=== PATIENT | male | born 1990 | race Caucasian/White ===

== ENCOUNTER 2017-12-06 05:12 | Emergency (ER) | payer SELFPAY ==
[~2017-12-06 05:12] MED LIST: AUG875 PO; NAPR-1043 PO
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
[2017-12-06] MEDS ORDERED: NAPR220C12 PO (05:17)
[2017-12-06 05:50] LABS: PLATELET COUNT, AUTOMATED 177 K/uL (150-450)
== END 2017-12-06 07:43 ==
LOC: ER 05:14
DX: F32.9 Major depressive disorder, single episode, unspecified (principal); R45.851 Suicidal ideations; F10.920 Alcohol use, unspecified with intoxication, uncomplicated
CPT/HCPCS: 36415; 80305; 80320; 80329; 81001; 82040; 82247; 82310; 82374; 82435; 82565; 82947; 83735; 84075; 84132; 84155; 84295; 84443; 84450; 84460; 84520; 85025; 99285

== ENCOUNTER 2017-12-06 07:24 | Inpatient (IN) | payer SELFPAY ==
[~2017-12-06] VITALS: Ht 190.5 cm; Wt 108.9 kg
[~2017-12-06 07:24] MED LIST changes: +NAPR220C12 PO
[2017-12-06] MEDS ORDERED: MAG HYD/AL HYD/SIMETH 30ML UDC PO PRN (07:55)
[2017-12-06 08:00] VITALS: BP 135/85
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
[2017-12-06] MEDS ORDERED: NICOTINE CARTRIDGE 1 EA PO PRN (12:20)
[2017-12-06] MEDS: NICOTINE INH SYSTEM 10 MG/INH INH PRN ×2 (14:08→21:19)
--- NOTE | 2017-12-06 15:52 | HISTORY AND PHYSICAL ---
DATE OF ADMISSION: December 06, 2017 Patient was seen at approximately 1030 hours in the a.m. of December 06, 2017 for note concerning this dictation. PRESENTING PROBLEM/CHIEF COMPLAINT Patient emergency detained, stating he was just trying to get a break. HISTORY OF PRESENT ILLNESS This is a previously unknown to the [facility] 27-year-old male who was brought in by police after being found mildly intoxicated on alcohol and potentially making suicidal threats outside of town. Patient reports that he has not been sleeping well. He has had a lot of family stressors. 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 Patient reports he unfortunately is losing this business and will be closing down. Patient reports his girlfriend and he had been fighting as well. He had been drinking. He believes his family in general is "messing with my personal life." Patient denies making any obvious suicidal threat, but says he may have mentioned vague suicidal stuff. Patient was initially somewhat resistant to care, but remained overall cooperative, was admitted without problems. Patient did have a blood alcohol level around 140 at the time of admission. Again patient cooperative. Patient allowing us to speak to his stepmother, who stated that she had been called by a niece who is a friend of his girlfriend. The girlfriend had called the niece, stating that patient was indeed suicidal and extremely depressed. Patient's stepmother then found a nuisance wildlife trapper on the street and notified him. A welfare check was done, [place] with girlfriend, Antonette. Patient's stepmother extremely worried and states that the patient feels his "world has been caving in on him." She also mentioned that he has a drinking problem, in that she believes the patient gets very dysphoric and angry when he drinks. So far we have been unable to contact the patient's girlfriend. Patient himself denying any other symptoms, other than anger and frustration over being on the unit, and the aforementioned family stressors. MENTAL HEALTH HISTORY Patient denies any previous visits to an inpatient psychiatric zarco. Patient has never had any outpatient mental health treatment. He denies a history of suicide attempt, and the patient states he has never been on a psychiatric meds. FAMILY PSYCHIATRIC HISTORY Significant for what the patient says is alcoholism in his father. He reports depression may be part of his father's makeup as well. He denies any suicides in the family. PAST MEDICAL HISTORY Patient himself has had some fractures with some residual pain and possible neuropathy. Patient reports taking Aleve for pain. No other medications. He does report an allergy to DIAL specific brand of soap. SOCIAL HISTORY Patient born in [place], [place], raised in [place] and [place]. Parents were at the time of his . They when he was about 9 years old. Patient has one sister, five and a half years younger, who he reports some contact with and who lives in [place]. Patient did graduate high school and he has a "technical degree," unknown what it is in. 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 Patient has never , has no service, no children, and has been in a one-year relationship with significant other right now. LEGAL HISTORY Patient reports legal history significant for DUI on two and possibly three occasions in the past, and patient may have some pending court charges. SUBSTANCE ABUSE HISTORY Patient admits to using alcohol at times, but is seemingly minimizing its negative effects. Denies any other substance use. PHYSICAL EXAMINATION GENERAL: Please see emergency room note. Notable for a frustrated 27-year-old male. VITAL SIGNS: At the time of admission, temperature 98.7, pulse 122, respiratory rate 14, blood pressure 97 on room air. LABORATORY DATA RBCs elevated at 6.04, hemoglobin 18.4 and elevated. Chemistry panel notable for a random glucose slightly elevated at 122. AST 46 and ALT 73, both slightly elevated. TSH 4.18. Urinalysis unremarkable. Toxicology screen negative. Serum alcohol level 141 at the time of admission. MENTAL STATUS EXAMINATION GENERAL APPEARANCE, BEHAVIOR AND ATTITUDE: This is an overall pleasant 27-year- old male, initially resistant to care and voicing his frustration of being on the unit and his mistrust of others. Patient, however, now interacting fairly well on the unit. We are still trying to gather collateral information. No bizarre mannerisms or tics. No periods of tearfulness. No psychomotor agitation or retardation. SPEECH: Within normal limits, regular rate, rhythm volume and tone. MOOD: Described as frustrated. AFFECT: Constricted. Mood congruent. THOUGHT PROCESSES: Goal directed. "I need to leave this place." No loose associations or flight of ideas. THOUGHT CONTENT: Free of auditory or visual hallucinations, ideas of reference , thought broadcastings, delusions, obsessions, compulsions. Patient stating he has no suicidal intent, but did allude to the fact he was making vague suicidal statements. Denying homicidal ideation. SENSORIUM: Clear. COGNITION: Alert and oriented to person, place, time and situation. MEMORY: Immediate, recent and remote estimated intact. INTELLIGENCE: Average based on interview. INSIGHT AND JUDGMENT: Considered limited at this time and in need of further evaluation. Acute alcohol intoxication likely limiting judgment. ASSESSMENT This is a 27-year-old male who has never been on the psychiatric zarco here before. Patient appears to be suffering from some degree of alcohol use disorder with what appears to be multiple DUIs and potentially a decompensation in mood when intoxicated. Patient suffering from multiple stressors that are identified at this time as well. We will gain collateral information. Patient' s stepmother reports that patient's girlfriend may have witnessed him holding a gun to his head in a suicide gesture. DIAGNOSES PER DSM-V Adjustment disorder with depressed and anxious mood. Alcohol intoxication. Partner relational problem as well as parent relational problem with family and business stressors. PLAN 1. Admit to the unit. 2. Necessary precautions to be implemented. 3. Patient will participate in individual and group therapy. 4. Medications to be evaluated, titrated accordingly. 5. Collateral information to be obtained from patient's stepmother, patient's father and patient's girlfriend. 6. Will consider a 10-day extension hearing if necessary. 7. Estimated length of stay as of yet unknown. MTDD
[2017-12-06] MEDS: NAPROXEN 500 MG TAB PO PRN (17:03)
[2017-12-06] MEDS ORDERED: hydrOXYzine 25 MG TAB PO PRN (21:35)
--- NOTE | 2017-12-06 21:38 | BHS - Psychiatric Evaluation ---
Title 25 Evaluation Hearing Report: 109 Date of Report: Dec 06, 2017 Examiner: Jocelyn Camacho M.S., L.P.C. Patient Detained By: Law Enforcement (Law Enforcement - [facility]) 24hr Mental Health Eval By: Jocelyn Camacho M.S., LLuannePLuanneC. Date Patient Detained: Dec 06, 2017 Time Patient Detained: 05:19 Date Intermediate Expires: Dec 11, 2017 Time Intermediate Expires: :19 Legal Status: Police Hold: No Legal Status: Relationship: Single Legal Status: Residence: [facility] Resident, State Resident Referral Source: Professional -Law Enforcement - [facility] Assessment Data Provided By: Patient, Law Enforcement ([id number]), Therapist Chief Complaint: Patient family members became increasingly worried about patient as he encountered multiple stressors. Patient acknowledges that he drank a great deal last night, after having committed to drinking less because he recognized his drinking had become concerning. Patient had made vague statements to family about his world crashing down, and seemed unstable and very upset to his family. 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 Patient also cites two recent deaths in his family that have left him bereft and in charge as estate executor. He says this has put him in a difficult position with family members. HPI/ROS: From Dr. Abdifatah Burgos, "27 year old male patient presents with depression with suicidal ideation. He is brought in by police, on an emergency group home. He had an argument with his girlfriend. He is grossly intoxicated. He was driving around. There was a loaded firearm in the car." Reliability of Pt-Evidenced By Patient is a reliable historian. Reliability of Collateral Info Collateral information is reliable. Current Dangerous Risk Assess: Current Suicide Ideation (Patient denies suicidality, but acknowledges extreme emotionality as well as impulsive and heavy drinking.) Current Risk Summary: Patient risk is rated medium to high. Patient family members became increasingly worried about patient as he encountered multiple stressors. Patient acknowledges that he drank a great deal last night, after having committed to drinking less because he recognized his drinking had become concerning. Patient had made vague statements to family about his world crashing down, and seemed unstable and very upset to his family. 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 Patient also cites two recent deaths in his family that have left him bereft and in charge as estate executor. He says this has put him in a difficult position with family members, and he says he is more overwhelmed than he has ever been in his life. This overwhelm combined with heavy drinking made his family concerned for his safety and well-being. Family states his behavior was uncharacteristically upset. Patient becomes quite dysphoric when drinking, says he does not share emotions with others or see a therapist to help with difficult life crises, and owns a firearm. Past Dangerous Risk Assess: Self-Injurious Behaviors (Two ER visits this year for a laceration on one occasion to his body, and a second time for a laceration to his head.) BHS - Exam Physical Exam Vital Signs Vital Signs 12/06/17 08:00 Temp 98.2 Pulse 95 B/P (MAP) 135/85 (102) Pulse Ox 95 O2 Delivery Room Air Mental Status Exam General Appearance: Good Eye Contact Speech: Clear, Normal Rate, Normal Rhythm, Normal Volume, Normal Tone Mood: Dysthmic/Depressed Thought Process: Goal Directed (Wants to leave the hospital) Thought Content: Suicidal Ideation (Denies, but 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 Family said he made suicidal gestures while intoxicated.) Cognition: Alert & Oriented-Person, Alert & Oriented-Place Memory: Immediate Insight Judgment: Poor Title 25 History Psychiatric History: Per Dr. Stack, "This is a 27-year-old male who has never been on the psychiatric zarco here before. Patient appears to be suffering from some degree of alcohol use disorder with what appears to be multiple DUIs and potentially a decompensation in mood when intoxicated. Patient suffering from multiple stressors that are identified at this time as well. Patient's stepmother reports that patient's girlfriend may have witnessed him holding a gun to his head in a suicide gesture." Family Psychiatric Hx: Patient denies any suicides completed in his family. He says he believes his father may struggle with depression and alcoholism. Previous Detentions: No known previous hospitalizations. Prior Outpatient Treatment: Denies. Drug & Alcohol Use: Patient says he has been using more alcohol to cope, and made an agreement to cut back with his girl friend, until last evening. Patient says he recognized an unhealthy progression, and hoped to, and still hopes to not use drinking when this dysregulated emotionally. Age of Onset/Duration: Multiple DUIs. Readiness for Change: Patient has been strongly contemplating changing his drinking behaviors. Also associates [place] with "getting into trouble here." Current Living Situation: Patient lives in [place]. 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 Legal Concerns: Patient report two, possibly three DUIs. Patient Strengths: Patient is well-spoken and knowledgeable about his industry. He speaks highly of family members. Current Medical Data: Patient himself has had some fractures with some residual pain and possible neuropathy. Assessment and Plan Course of Care: Course of care will be consistent with a patient who is destabilized, and reports he is more emotional dysregulation than he has ever been in his life. Diagnostic Impressions: Adjustment disorder with depressed and anxious mood Alcohol intoxication Bereavement Partner relational problem as well as parent relational problem with family and business stressors Assessment and Plan: Necessary precautions to be implemented. Patient will participate in individual and group therapy. Medications to be evaluated, titrated accordingly. Collateral information to be obtained from patient's stepmother, patient's father and patient's girlfriend. Risk Formulation: The patient "evidences a substantial probability of physical harm to self as manifested by evidence of recent threats of/or attempts at suicide or serious bodily harm" as evidenced by:Patient risk is rated medium to high. Patient family members became increasingly worried about patient as he encountered multiple stressors. Family members says patient made vague suicidal references that frightened them about patient's safety. Patient acknowledges that he drank a great deal last night, after having committed to drinking less because he recognized his drinking had become concerning. Patient had made vague statements to family about his world crashing down, and seemed unstable and very upset to his family. 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 He reports very poor sleep and poor nutrition. Patient also cites two recent deaths in his family that have left him bereft and in charge as estate executor. He says this has put him in a difficult position with family members, and he says he is more overwhelmed than he has ever been in his life. This overwhelm combined with heavy drinking made his family concerned for his safety and well-being. Family states his behavior was uncharacteristically upset. Patient becomes quite dysphoric when drinking, says he does not share emotions with others or see a therapist to help with difficult life crises, and owns a firearm. Recommendations of S Team: It is therefore recommended by the Behavioral Health Services Team: Patient, Alberto Campbell, stay the full duration of his 72 hour hold or until he stabilizes. He is currently assessed as unstable. JOCELYN CAMACHO PHOSPHORIC ACID SUPERVISOR Dec 06, 2017 21:38
[2017-12-06 21:39] VITALS: BP 132/79
[2017-12-06] MEDS ORDERED: hydrOXYzine PAMOATE 25 MG CAP PO PRN (21:55)
[2017-12-06] MEDS: MELATONIN 3 MG TAB PO SCH (22:27)
[2017-12-07 06:17] VITALS: BP 105/52
[2017-12-07] MEDS: MULTIVITAMINS PO SCH ×2 (08:16→09:00)
[2017-12-07] MEDS: NICOTINE INH SYSTEM 10 MG/INH INH PRN ×2 (10:22→16:01)
[2017-12-07 13:20] VITALS: BP 142/68
--- NOTE | 2017-12-07 13:25 | BHS Progress Note ---
[facility] - Subjective Progress Notes Subjective Patient interacting well with step mother (who was instrumental in initiating usp through police contact), as well as girlfriend present in treatment team meeting. Patient indicating an understanding that he needs to take alcohol consumption very seriously, do to significant symptoms of alcohol induced mood disorder. Patient denies any suicidal intent, and indicates a desire to enter outpatient therapy with his girlfriend, and abstain from alcohol. No other concerns today. At this point patient will have trial of trazadone and compare to hydroxyzine which he has had for sleep. Will not go forward with 10 day hearing, and will plan on discharge on Sunday, when therapeutic program here is complete. Suicidal Ideation: None Homicidal Ideation: None [facility] - Objective Physical Exam Vital Signs Vital Signs Date Time Temp Pulse Resp B/P (MAP) Pulse Ox O2 Delivery O2 Flow Rate FiO2 12/07/17 06:17 98.0 63 105/52 (69) 93 Room Air Muscle Strength and Tone: WNL Gait and Station: Steady [facility] Medications Reviewed: Side Effects, Benefits of Medication, Risks Allergies Reviewed: Yes Mental Status Exam General Appearance: Casual, Well Groomed, Good Eye Contact, Cooperative, Polite , Good Interaction, No Unkept, No Tearful, No Psychomotor Agitation, No Psychomotor Retardation, No Bizarre Mannerisms, No Tics Speech: Clear, Spontaneous, Normal Rate, Normal Rhythm, Normal Volume, Normal Tone, No Delayed, No Slurred, No Garbled, No Rambling, No Inappropriate Mood: Dysthmic/Depressed (improving, frustrated) Affect: Full and Appropriate, No Withdrawn, No Tearful, No Anxious, No Agitated Thought Process: Goal Directed (Wants to leave the hospital) Thought Content: Suicidal Ideation (Denies, but 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 Family said he made suicidal gestures while intoxicated.), No Homicidal Ideation, No Delusions, No Auditory Halllucinations , No Visual Hallucinations, No Thought Broadcasting, No Ideas of Reference, No Obsessions, No Compulsions Sensorium: Clear Cognition: Alert & Oriented-Person, Alert & Oriented-Place, Alert & Oriented- Time Memory: Immediate, Recent, Remote Intelligence: Average Insight Judgment: Fair (in absence of alcohol) [facility] Assessment and Plan [id number] Encounter Date: Dec 07, 2017 [id number] Encounter Time: 09:00 [facility] Plan: Necessary Precautions, Individual/Group Therapy, Admin/Titrate Meds, Educate Patient Tobacco Medications: Not Appropriate Condition Multpiple Antipsychotics Used: No Problems: (1) Alcohol-induced mood disorder with depressive symptoms Optional Permanent Comment: depressive and angry when intoxicated Last Edited By: Mirna Rose on Dec 07, 2017 13:24 Status: Acute (2) Parent relationship problem Optional Permanent Comment: concerning father, and at times step mother Last Edited By: Mirna Rose on Dec 07, 2017 13:23 Status: Chronic (3) Adjustment disorder with depressed mood Optional Permanent Comment: concerning multiple social stressors, legal, financial, employment. Last Edited By: Mirna Rose on Dec 07, 2017 13:24 Status: Acute (4) Alcohol use disorder, moderate, in early remission Status: Chronic (5) Alcohol intoxication Status: Acute Condition 1. continue treatment. 2. trial of trazodone tonight. 3. plan for discharge on Sunday. Problem Qualifiers (1) Alcohol intoxication: Complication of substance-induced condition: uncomplicated Qualified Codes: F10.920 - Alcohol use, unspecified with intoxication, uncomplicated MIRNA ROSE MD Dec 07, 2017 13:25
[2017-12-07] MEDS: NAPROXEN 500 MG TAB PO PRN (16:01)
[2017-12-07] MEDS ORDERED: traZODone HCL 50 MG TAB PO SCH (21:00)
[2017-12-07] MEDS: MELATONIN 3 MG TAB PO SCH (21:15)
[2017-12-07 21:23] VITALS: BP 135/90
[2017-12-08 05:55] VITALS: BP 92/52
[2017-12-08] MEDS: MULTIVITAMINS PO SCH (08:05)
--- NOTE | 2017-12-08 09:27 | BHS Progress Note ---
[facility] - Subjective Progress Notes Subjective "Tired." Rates depression level a 1, anger a 2, anxiety a 0, guilt/shame 0. Denies SI. Suicidal Ideation: None Homicidal Ideation: None [facility] - Objective Physical Exam Vital Signs Vital Signs 12/07/17 12/07/17 12/08/17 13:20 21:23 05:55 Temp 97.1 Pulse 64 Resp 16 B/P (MAP) 92/52 (65) Pulse Ox 93 O2 Delivery Room Air FiO2 94.0 Muscle Strength and Tone: WNL Gait and Station: Steady [facility] Medications Reviewed: Side Effects, Benefits of Medication, Risks Allergies Reviewed: Yes Mental Status Exam General Appearance: Casual, Well Groomed, Good Eye Contact, Cooperative, Polite , Good Interaction, No Unkept, No Tearful, No Psychomotor Agitation, No Psychomotor Retardation, No Bizarre Mannerisms, No Tics Speech: Clear, Spontaneous, Normal Rate, Normal Rhythm, Normal Volume, Normal Tone, No Delayed, No Slurred, No Garbled, No Rambling, No Inappropriate Mood: Dysthmic/Depressed (improving, frustrated) Affect: Full and Appropriate, No Withdrawn, No Tearful, No Anxious, No Agitated Thought Process: Goal Directed (Wants to leave the hospital) Thought Content: Suicidal Ideation (Denies, but 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 Family said he made suicidal gestures while intoxicated.), No Homicidal Ideation, No Delusions, No Auditory Halllucinations , No Visual Hallucinations, No Thought Broadcasting, No Ideas of Reference, No Obsessions, No Compulsions Sensorium: Clear Cognition: Alert & Oriented-Person, Alert & Oriented-Place, Alert & Oriented- Time Memory: Immediate, Recent, Remote Intelligence: Average Insight Judgment: Good [facility] Assessment and Plan [id number] Encounter Date: Dec 08, 2017 [id number] Encounter Time: 09:20 [facility] Plan: Necessary Precautions, Individual/Group Therapy, Admin/Titrate Meds, Educate Patient Tobacco Medications: Not Appropriate Condition Multpiple Antipsychotics Used: No Problems: (1) Alcohol use disorder, moderate, in early remission Status: Chronic (2) Alcohol-induced mood disorder with depressive symptoms Optional Permanent Comment: depressive and angry when intoxicated Last Edited By: Norman Stack on Dec 07, 2017 13:24 Status: Acute SABINO SAUNDERS NP Dec 08, 2017 09:27
[2017-12-08] MEDS: NICOTINE INH SYSTEM 10 MG/INH INH PRN ×2 (10:44→16:20)
[2017-12-08 13:15] VITALS: BP 148/72
[2017-12-08] MEDS: NAPROXEN 500 MG TAB PO PRN (14:01)
[2017-12-08] MEDS ORDERED: traZODone HCL 50 MG TAB PO PRN (17:50)
[2017-12-08] MEDS ORDERED: traZODone HCL 50 MG TAB PO SCH (21:00)
[2017-12-08] MEDS: MELATONIN 3 MG TAB PO SCH (21:15)
[2017-12-09 01:47] VITALS: BP 121/83
[2017-12-09] MEDS: MULTIVITAMINS PO SCH (08:26)
[2017-12-09] MEDS ORDERED: NIC10R INH (08:48)
[2017-12-09] MEDS ORDERED: TRAZ-156 PO (08:49)
[2017-12-09 09:19] VITALS: BP 134/79
[2017-12-09] MEDS: NICOTINE INH SYSTEM 10 MG/INH INH PRN (10:55)
[2017-12-09] MEDS: NAPROXEN 500 MG TAB PO PRN (10:55)
--- NOTE | 2017-12-11 13:55 | DISCHARGE SUMMARY ---
DIAGNOSES PER DSM-V Adjustment disorder. Alcohol use disorder, moderate. REASON FOR ADMISSION Patient was admitted to the unit on a voluntary basis after he made suicidal statements. PHYSICAL EXAMINATION GENERAL: Please see emergency room note for a review of systems. VITAL SIGNS: On admission, temperature 98.8, pulse 95, blood pressure 142/68, pulse oximetry 95% on room air. Vital signs on the day of discharge, temperature 98.4, pulse 88, respiratory rate 16, blood pressure 134/79, pulse oximetry 94% on room air. LABORATORY DATA COMPLETED IN THE EMERGENCY ROOM ON ADMISSION Red blood cells high at 6.04, hemoglobin high at 18.4. Carbon dioxide was low at 19, random glucose was high at 122, AST was high at 46, ALT 73 and high, total protein 8.9 and high, albumin 5.1 and high. Salicylates negative, acetaminophen negative, serum alcohol was 141 upon admission. Urine drug screen negative. TSH was 4.18. MENTAL STATUS EXAMINATION GENERAL APPEARANCE, BEHAVIOR AND ATTITUDE: A 27-year-old male who appears his stated age. He was pleasant and cooperative, interactive with clinicians appropriately. SPEECH: Within normal limits. MOOD: Described as better. AFFECT: Rangeful and appropriate. THOUGHT PROCESSES: Logical and goal directed. No loose associations or flight of ideas. THOUGHT CONTENT: Patient denied suicidal ideation. He denied homicidal ideation. He was free of auditory or visual hallucinations. No delusions elicited. SENSORIUM: Clear. COGNITION: Alert and oriented to person, place, time and situation. MEMORY: Immediate, recent and remote estimated grossly intact. INTELLIGENCE: Average based upon interview. INSIGHT AND JUDGMENT: Improved and good. He is voicing plan to follow up with outpatient care. TREATMENT Patient received medications trialed for assistance with sleep onset. He participated in individual, group and milieu therapy and psychoeducation. HOSPITAL COURSE He was pleasant and cooperative throughout his stay. CONDITION OF PATIENT ON DISCHARGE Considered stable and a minimal risk to himself and others, appropriate for outpatient management. DISPOSITION Patient was discharged to home. He is to followup with [facility] for outpatient therapy. Patient was discharged on the following medications: Trazodone 50 mg at bedtime as needed for sleep. The 24-hour crisis line number was provided should symptoms or problems return. The risks, benefits and alternatives of the above discharge plan were discussed with client and informed consent was given to proceed with the above discharge plan by this competent patient. ASHLEY
== END 2017-12-09 14:25 | disposition home or self-care (01) | DRG 897 ==
LOC: BHS 07:24
PROVIDERS: ADMIT Psychiatry & Neurology Psychiatry; ATTEND Psychiatry & Neurology Psychiatry
DX: F10.94 Alcohol use, unspecified with alcohol-induced mood disorder (principal); R45.851 Suicidal ideations; F43.21 Adjustment disorder with depressed mood; Y90.6 Blood alcohol level of 120-199 mg/100 ml; Z63.8 Other specified problems related to primary support group; Z63.0 Problems in relationship with spouse or partner; Z81.1 Family history of alcohol abuse and dependence
CPT/HCPCS: 90853; Q0177